=== PATIENT | female | born 1965 | race Caucasian/White ===

== ENCOUNTER 2016-08-21 15:23 | Emergency (ER) | payer OTHER ==
[~2016-08-21] VITALS: Ht 165.1 cm; Wt 66.0 kg
[2016-08-21 15:30] VITALS: BP 110/70; PULSE 69; RESP 16; TEMP 98.6; O2SAT 100
[2016-08-21] MEDS ORDERED: ZOLO100T PO (15:43)
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
[2016-08-21] MEDS ORDERED: IBUPROFEN 600 MG TAB PO ONE (16:30)
== END 2016-08-21 16:26 | disposition home or self-care (01) ==
LOC: PHEFT 15:23
DX: R51 Headache (principal); F32.9 Major depressive disorder, single episode, unspecified; V43.52XA Car driver injured in collision with other type car in traffic accident, initial encounter; Y93.9 Activity, unspecified; Y92.9 Unspecified place or not applicable; Y99.9 Unspecified external cause status
CPT/HCPCS: 99283